=== PATIENT | male | born 1960 | race Caucasian/White ===

== ENCOUNTER 2022-03-21 07:43 | Outpatient (CLI) | payer OTHER, SELFPAY ==
--- NOTE | 2022-03-30 23:24 | WPDHOMESLEEP ---
Sleep Study - Home Unattended Date of Study: 03/21/22 Ordering Provider: Jose Fleming MD Interpreting Provider: Veronika Arauz, DO Home Sleep Study Type: Watch PAT Height: 1.8 m Weight: 107.955 kg Body Mass Index: 33.2 Neck Circumference (inches): 17.25 Home: 6 Reason for Sleep Study Witnessed apneas, loud snoring Sleep History The patient is a 61-year-old with history of tobacco use that had a sleep study ordered by his primary care physician for evaluation of sleep apnea. The patient denies awakening from sleep short of breath. He occasionally awakens at night with heartburn, belching or cough. He frequently snores and it is occasionally loud enough that others complain. He occasionally has trouble sleeping when he has a cold. He denies waking up gasping for air throughout the night. He frequently has breathing problems at night observed by himself or others. He occasionally sweats excessively at night. He occasionally has heart palpitations or irregular heartbeats during the night. He occasionally falls asleep during the day but rarely falls asleep while driving. He denies experiencing loss of muscle tone when extremely emotional. He denies having trouble at school or work due to sleepiness. He rarely feels unable to move while waking up or falling asleep. He rarely experiences vivid dreamlike scenes upon awakening or falling asleep. He denies feeling afraid of falling asleep. He rarely has nightmares. He occasionally remembers his dreams. He frequently has thoughts racing through his mind. He rarely feels sad or depressed but occasionally has anxiety. He constantly has muscular tension. He occasionally notices parts of his body jerk. He denies during the night. He denies having crawling and aching feelings in his legs. He rarely has leg pain during the night. He frequently grinds his teeth during sleep but denies awakening with morning jaw pain. He is occasionally bothered by pain during the day but rarely awakened by pain during the night. He occasionally wakes up feeling stiff in the morning. He occasionally wakes up with sore achy muscles. He occasionally wakes up with pain in the neck, spine or other joints. He goes to bed at 1:30 a.m. on both weekdays and weekends. He is able to fall asleep immediately. He wakes up 1-3 times throughout the night to re adjust his position. He is able fall asleep immediately. He wakes up at 8:30 a.m. on both weekdays and weekends. He typically gets 7 hours of sleep per night. He will spend up to 10 minutes in bed after waking up in the morning. He currently lives with his . He denies consuming any caffeinated beverages within 2 hours of bedtime. He does not engage in physical exercise before bedtime. He will read and watch television before falling asleep. He will take naps in the afternoon or the evening and they are refreshing. He drinks 2-3 cups of caffeinated beverage per day. He drinks 2-3 beers per day. He quit smoking in September 1997. He denies recreational drug use. [facility] Past Medical History Medical History Apnea BMI 32.0-32.9,adult Screening for lipid disorders Screening for prostate cancer Family History Family History Mother Cerebrovascular accident Family history of lupus erythematosus Father Family history of hepatitis Family history of diabetes mellitus in first degree relative Diabetes mellitus Sibling Family history of lupus erythematosus Social History Social History Alcohol intake: current Medications Home Medications Medication Instructions Recorded Confirmed Type No Home Medications 06/03/19 06/17/21 History Sleep Procedure The sleep study was completed using [employer] a technically adequate device with seven channels: peripheral
[2022-03-30 23:34] VITALS: BMI 33.2
== END 2022-03-24 11:26 | disposition home or self-care (01) ==
LOC: ANHCSM 07:44
PROVIDERS: PCP Family Medicine; Visit Provider Family Medicine
DX: G47.33 Obstructive sleep apnea (adult) (pediatric) (principal); G47.9 Sleep disorder, unspecified
CPT/HCPCS: 95800

== ENCOUNTER 2022-06-11 07:24 | Outpatient (CLI) | payer OTHER, SELFPAY ==
--- NOTE | 2022-07-11 19:45 | WPDSLEEPSTUD ---
Sleep Study Date of Study: 06/11/22 Ordering Provider: Jose Fleming MD Interpreting Physician: Stephenie Brown MD Sleep Study Type: Split Polysomnogram Height: 1.83 m Weight: 109.769 kg Body Mass Index: 32.8 Neck Circumference (inches): 19 [place]: 6 Reason for Sleep Study * 03/21/2022, home sleep test showing AHI 0.7, desaturation to 90%; home sleep test showed minimal findings which was inconsistent with the patient's history Of loud snoring and excessive daytime sleepiness He presents for split night study for a more thorough evaluation of sleep-related complaints. Sleep History Braden Arguello is a 61-year-old who denies waking from sleep short of breath.? He occasionally awakens at night with heartburn, belching or cough.? He frequently snores and it is occasionally loud enough that others complain.? He occasionally has trouble sleeping when he has a cold.? He denies waking up gasping for air throughout the night.? He frequently has breathing problems at night observed by himself or others.? He occasionally sweats excessively at night.? He occasionally has heart palpitations or irregular heartbeats during the night.? He occasionally falls asleep during the day but rarely falls asleep while driving.? He denies experiencing loss of muscle tone when extremely emotional.? He denies having trouble at school or work due to sleepiness.? He rarely feels unable to move while waking up or falling asleep.? He rarely experiences vivid dreamlike scenes upon awakening or falling asleep.? He denies feeling afraid of falling asleep.? He rarely has nightmares.? He occasionally remembers his dreams.? He frequently has thoughts racing through his mind.? He rarely feels sad or depressed but occasionally has anxiety.? He constantly has muscular tension.? He occasionally notices parts of his body jerk.? He denies kicking during the night.? He denies having crawling and aching feelings in his legs.? He rarely has leg pain during the night.? He frequently grinds his teeth during sleep but denies awakening with morning jaw pain.? He is occasionally bothered by pain during the day but rarely awakened by pain during the night.? He occasionally wakes up feeling stiff in the morning.? He occasionally wakes up with sore achy muscles.? He occasionally wakes up with pain in the neck, spine or other joints.? Normal bedtime is 1:30 a.m., falling asleep quickly, wakes up 1-3 times throughout the night to re adjust his position.? He is able fall asleep immediately.? He wakes up at 8:30 a.m., typically gets 7 hours of sleep per night. He will read and watch television before falling asleep.? He will take naps in the afternoon or the evening and they are refreshing.? Habits: Smoked tobacco, quit September 1997. Caffeine: 2-3 cups per day.? Alcohol: 2-3 beers per day.? No recreational drugs. [facility] Past Medical History Medical History Apnea BMI 32.0-32.9,adult Screening for lipid disorders Screening for prostate cancer Family History Family History Mother Cerebrovascular accident Family history of lupus erythematosus Father Family history of hepatitis Family history of diabetes mellitus in first degree relative Diabetes mellitus Sibling Family history of lupus erythematosus Social History Social History Alcohol intake: current Medications Home Medications Medication Instructions Recorded Confirmed Type zolpidem 5 mg tablet (Ambien) 5 mg PO QHS PRN sleep #1 tablet 04/28/22 Rx Sleep Procedure This test was performed using the [employer] multiple channel system including EOG, EEG, submental EMG, EKG, nasal and oral airflow using thermistors and nasal pressure sensors, chest and abdominal belts for body position data, and pulse oximetry. Video monitoring was also performed. The st
[2022-07-12 17:10] VITALS: BMI 32.8
== END 2022-06-12 06:58 | disposition home or self-care (01) ==
PROVIDERS: PCP Family Medicine; Visit Provider Family Medicine
DX: G47.33 Obstructive sleep apnea (adult) (pediatric) (principal)
CPT/HCPCS: 95811